=== PATIENT | male | born 1995 | race Caucasian/White ===

== ENCOUNTER 2017-06-17 09:03 | Observation (INO) ==
[2017-06-17] MEDS ORDERED: VANCOMYCIN 1,250 MG in NS 500ml 500 ML IV ONE (09:31)
[2017-06-17] MEDS ORDERED: ONDANSETRON 4 MG/2 ML INJECTION IVP ONE (09:31)
[2017-06-17] MEDS ORDERED: FentaNYL 250 MCG/5 ML INJECTION IVP ONE (09:31)
[2017-06-17] MEDS ORDERED: NS 1,000 ML IV ONE (09:31)
--- OUTSIDE RECORDS SUMMARY | 2017-06-17 09:36 | External Medical Summary | Continuity of Care Document ---
:1995 Author Organization [facility] Allergies Active Description Code Type Severity Reaction Onset Reported/ Identified Relationship Clinical to Patient Status Yes No Known No Drug Unknown N/A 06/18/2016 Allergies Known Aller Aller gy gies Medications There is no data. Problems There is no data. Procedures There is no data.<section xmlns="urn:hl7-org:v3" xmlns:xsi=" http://www.Sensopia.org/2001/XMLSchema-instance"> <templateId root=" [id number]" /> <templateId root=" [id number]" /> <code codeSystemName=" LOINC" codeSystem="[id number]" code="70676-9&quot ; displayName="Results" /> <title>Results</title> &lt ;text> <table> <thead> <tr> <th& gt;Test</th> <th>Result</th> <th>Range </th> </tr> </thead> <tbody> &lt ;tr> <th colspan="10">STREP THROAT SCREEN (GROUP A) - STREP THROAT CULTURE (GROUP A) - 06/18/16 13:25</th> </tr> <tr> <td>Microbiology</td> <td> & lt;/td> <td /> </tr> </tbody> </ table> </text> <entry> <organizer moodCode="EVN&quot ; classCode="BATTERY"> <templateId root=" [id number]" /> <id nullFlavor="NA&quot ; /> <code codeSystem="local" code="STREPA" displayName="STREP THROAT SCREEN (GROUP A) - STREP THROAT CULTURE (GROUP A) " /> <statusCode code="completed" /> < component> <observation moodCode="EVN" classCode=" OBS"> <templateId root="[id number]& quot; /> <id nullFlavor="NA" /> <code codeSystem="local" code="MB" displayName="Microbiology& quot; /> <statusCode code="completed" /> & lt;effectiveTime value="[id number]" /> <value xsi:type=&quot ;ST" value="<pre><b>STREP THROAT SCREEN (GROUP A)</b&gt ; See BelowSTREP THROAT SCREEN (GROUP A)(F) Conor Date/Time: 06/18/2016 13:25 Sarah Date/Time: 06/18/2016 13:40SOURCE: THROATSPEC DESC: GROUP A STREP (Abnormal)POSITIVE (Abnormal)[facility] [id number] [address]</pre>" /> < referenceRange> <observationRange> <text /& gt; </observationRange> </referenceRange> </observation> </component> </organizer> </entry& gt;</section> Encounters ACCT Visit Discharge Status Pt. Type Provider Facility Loc./Unit Complaint No. Date/Time [id number] 06/18/2016 06/18/2016 DIS Emergency Secrist Guy AguirreEDW [id number] 12:40:00 14:10:00 DO [facility]
--- NOTE | 2017-06-17 09:40 | Emergency Department Report ---
Skin/Abscess/FB HPI - General Chief complaint: Skin/Abscess/Foreign Body Stated complaint: swelling jaw area Time Seen by Provider: 06/17/17 09:27 Source: patient, family, RN notes reviewed, old records reviewed Mode of arrival: ambulatory Limitations: no limitations - History of Present Illness HPI narrative: 21yo man presents to the ER this AM for b/l facial swelling. Pt popped a 'pimple ' on his jaw >48hrs ago. Ever since, he has had redness, swelling, and warmth of his jaw. This AM, when he awoke, his face was warm, TTP, and the swelling had spread b/l along his jaw. He now has severe dental pain throughout his jaw. Pt has a remote h/o 'staph infection' of his arm. MD complaint: other (Cellulitis) Onset (ago): day(s) (2+) Location: face Severity: severe Severity scale (1-10): 8 Quality: burning Consistency: constant Relieving factors: cold therapy, medication Exacerbating factors: palpation, movement Treatments prior to arrival: attempted to drain pus at home, Benadryl, NSAID - Related Data Home Medications Medication Instructions Recorded Confirmed No known Home medications [No home 06/17/17 06/17/17 meds] Allergies Allergy/AdvReac Type Severity Reaction Status Date / Time No Known Drug Allergies Allergy Unknown NONE Verified 06/17/17 09:23 Review of Systems All systems: reviewed and negative except as stated ENT: Reports: as per HPI, dental pain. Denies: ear pain, throat pain, hearing loss, epistaxis, congestion, dysphagia Integumentary: Reports: as per HPI, change in pigmentation, erythema, rash, swelling. Denies: alopecia, change in hair, change in nails, changing lesions, lesions, non-healing lesions, photosensitivity, pruritus, wounds, jaundice [facility] Medical History Updates: 'Staph' infection - Social History Smoking status: Never smoker Physical Exam - Limitations Limitations: no limitations - General General appearance: alert, in no apparent distress - Normal Exams: Head:: Normocephalic without trauma Eyes:: Pupils are PERRLA w/ EOMI, No scleral icterus, irritation, or foreign bodies noted Neck:: Full range of motion, without adenopathy Lymphatic:: No lymphadenopathy Musculoskeletal:: No tenderness, or deformity noted, good range of motion Neurological:: Patient is alert, and oriented Psychiatric:: Patient exhibits, appropriate attention - ENT ENT exam: Present: mucous membranes moist, normal external ear exam. Absent: normal exam, normal oropharynx (Swelling of buccal mucosa and gingiva to molars along mandible) - Skin Skin exam: Present: warm, dry, intact, rash, erythema (Swelling, induration, erythema, and TTP along mandible b/l to angle) Course - Consultations Consultation #1: Hospitalist: Will admit pt for further atbx and obs. Time: 11:07 Vital Signs Temperature 99.2 F 06/17/17 09:03 Pulse Rate 96 06/17/17 09:03 Respiratory Rate 18 06/17/17 09:03 Blood Pressure 147/81 H 06/17/17 09:03 Pulse Oximetry 97 06/17/17 09:03 Temperature 99.2 F 06/17/17 09:03 Pulse Rate 96 06/17/17 10:00 Respiratory Rate 18 06/17/17 09:03 Blood Pressure 158/80 H 06/17/17 10:30 Pulse Oximetry 98 06/17/17 10:00 Skin/Abscess/Foreign Body - MDM Narrative Medical decision making narrative: Pt without gross evidence of osteo, Micah's angina, or abscess formation. Discussed with hospitalist, who will admit to continue atbx and for observation. - Differential Diagnosis Likely: abscess of skin or subcutaneous tissue, allergic reaction to drug, cellulitis, eczema, impetigo. Unlikely: viral exanthem, dermatophytosis, urticaria, herpes zoster, insect bites, contact dermatitis - Medical Records Attestation: I reviewed the patient's medical records. - Lab Data Attestation: I reviewed the patient's lab results. Result diagrams: 06/17/17 09:44 06/17/17 09:44 Lab Results 06/17/17 06/17/17 Range/Units 09:44 09:44 WBC 11.7 H (4.5-11.0) T/MM3 RBC 5.38 (4.50-5.90) M/MM3 Hgb 15.7 (13.5-17.5) GM/DL Hct 45.3 (41-53) % MCV 84.2 (80-100) UM3 MCH 29.2 (26-34) UUG MCHC 34.7 (31-37) GM/DL RDW Std Deviation 37.1 (36.9-50.2) FL Plt Count 239 (130-400) T/MM3 MPV 8.7 L (9.4-12.4) UM3 Immature Gran % (Auto) 0.2 (0.0-0.5) % Neut % (Auto) 77.9 H (33-66) % Lymph % (Auto) 14.5 L (23-45) % Parmer % (Auto) 7.2 (0-9.0) % Eos % (Auto) 0.0 (0-4) % Baso % (Auto) 0.2 (0-2) % Neut # (Auto) 9.1 H (1.8-7.7) T/MM3 Lymph # (Auto) 1.7 (1-4.8) T/MM3 Parmer # (Auto) 0.8 (0-0.8) T/MM3 Eos # (Auto) 0.0 (0-0.5) T/MM3 Baso # (Auto) 0.0 (0-0.2) T/MM3 Abs Immat Gran (auto) 0.02 (0.00-0.03) T/MM3 Turbidity < 20 (0-20) Sodium 145 H (134-144) MEQ/L Potassium 4.1 (3.6-5) MEQ/L Chloride 104 (98-107) MEQ/L Carbon Dioxide 29 (22-30) MEQ/L Anion Gap 12 (5-15) MEQ/L BUN 10.0 (9-20) MG/DL Creatinine 0.9 (0.8-1.5) MG/DL GFR Calculation 108 BUN/Creatinine Ratio 11 (6-26) RATIO Glucose 111 H (75-110) MG/DL Calculated Osmolality 279 (261-280) MOSM/KG Calcium 9.7 (8.4-10.2) MG/DL Icterus Index < 2 (0-7) C-Reactive Protein 33.5 H (0-9) MG/L Specimen Hemolysis < 15 (0-25) - Radiology Data Attestation: I reviewed the patient's radiology results. CT Neck: FINDINGS: Nasopharynx: Unremarkable. Oropharynx: Unremarkable. No significant tonsillar enlargement. No peritonsillar abscess. Hypopharynx: Unremarkable. Larynx: Unremarkable. Normal epiglottis. Trachea: Unremarkable. Retropharyngeal space: Unremarkable. Submandibular/parotid glands: Unremarkable. Glands are normal in size. Thyroid: Unremarkable. No enlarged or calcified nodules. Bones/joints: Mild inflammatory changes without abscess are noted in both cheeks at the level of the mandible. There is no evidence of abnormal fluid collection to suggest an abscess. No acute fracture. Soft tissues: Unremarkable. Vasculature: No acute findings. Lymph nodes: There is an enlarged 11 mm right carotid chain lymph node. There is an enlarged 10.5 mm left carotid chain lymph node. Lung apices: Unremarkable as visualized. IMPRESSION: Bilateral suspected cheek cellulitis with slightly enlarged bilateral carotid chain lymph nodes. Disposition Clinical Impression: Cellulitis Qualifiers: Site of cellulitis: face Qualified Code(s): L03.211 - Cellulitis of face Disposition: 02 To [facility] Print Language: Vietnamese Condition: Improved Prescriptions: No Action No known Home medications [No home meds] 0 #0 [facility] Referrals: Tu Casillas MD [Physician] - Time of Disposition: 11:11 - Seen By: physician
[2017-06-17] MEDS ORDERED: CLINDAMYCIN PB 600 MG/50 ML BAG IV SCH (09:45)
[2017-06-17] MEDS ORDERED: FentaNYL 100 MCG/2 ML INJECTION IVP ONE (10:00)
[2017-06-17] MEDS: SALINE FLUSH 10ml SYRINGE IVF PRN ×3 (10:11→11:16)
[2017-06-17] MEDS ORDERED: IOHEXOL 300mg/ml 75ml INJECTION ONE (10:12)
[2017-06-17] MEDS ORDERED: SALINE FLUSH 10ml SYRINGE ONE (10:12)
[2017-06-17] MEDS ORDERED: KETOROLAC 30 MG/ML INJECTION IVP ONE (11:13)
[2017-06-17 11:42] VITALS: BMI 28.0
[2017-06-17] MEDS ORDERED: BISACODYL 10 MG SUPPOSITORY RECTALLY PRN (11:46)
[2017-06-17] MEDS ORDERED: ONDANSETRON 4 MG/2 ML INJECTION IVP PRN (11:46)
[2017-06-17] MEDS ORDERED: FentaNYL 100 MCG/2 ML INJECTION IVP PRN (11:46)
[2017-06-17] MEDS ORDERED: INFLUENZA VAC QIV 2017-18 (Fluarix*)(>=3yo) 0.5ml IM ONE (11:47)
[2017-06-17] MEDS: 1/2 NS 1,000 ML IV SCH ×2 (12:04→21:19)
[2017-06-17] MEDS: CLINDAMYCIN PB 600 MG/50 ML BAG IV SCH ×2 (12:24→17:20)
--- NOTE | 2017-06-17 12:26 | History & Physical Report ---
History of Present Illness Date: 06/17/17 Chief complaint: pain and swelling in chin HPI: Patient is a 21-year-old who came to the ER this morning with complaints of pain and swelling in his chin. He states it started 2 nights ago. He initially had a "pimple" that he "popped" and then he states he started to get swelling. The swelling has gradually worsened and he has developed pain along with it. Has pain with eating. The pain is mostly in the chin but spreads to the jaw bilaterally. States before pain medicine in the ER his pain was 8/10. It is currently 2/10. CT scan performed in the ER showed possibility of cheek cellulitis with slightly enlarged bilateral carotid chain lymph nodes. Patient has not run a fever that he is aware of at home, but was 99.2 in the ER. He's had a little bit of a headache, but reports that is resolved. Otherwise he has not been feeling ill. His white count in the ER was 11.7. Otherwise, labs are unremarkable. Review of Systems All systems PM: 10-point ROS was reviewed, no additional remarkable complaints except (chin pain, feels "warm," headache earlier - resolved now) Past Medical History Patient Stated Medical History Other Infectious Yes: right arm staph infection Medical History Updates: 'Staph' infection in arm 3 years ago - resolved with atbx Surgical History: none Family History: F - DM, obesity M - MS Brother - asthma Family History Updates: updated - Social History Smoking status: Never smoker Substance use type: does not use Alcohol intake frequency: does not drink Housing: house Household members: family Current occupational status: student ([employer]) Social history: No PCP - has been healthy and hasn't needed to see an MD. Would est with Dr. Connelly if needed. Medications Home Medications Medication Instructions Recorded Confirmed Type No known Home medications [No home 06/17/17 06/17/17 History meds] Allergies Allergy/AdvReac Type Severity Reaction Status Date / Time No Known Drug Allergies Allergy Unknown NONE Verified 06/17/17 09:23 Exam Vital Signs: Temperature 99.0 F 06/17/17 11:41 Pulse Rate 88 06/17/17 11:41 Respiratory Rate 20 06/17/17 11:41 Blood Pressure 142/80 H 06/17/17 11:41 Pulse Oximetry 99 06/17/17 11:41 Height/Weight/BMI: Height 1.78 m Weight 88.5 kg Body Mass Index 28.0 - Constitutional Present: no acute distress, well nourished, well developed - Routine HEENT Exam Head: Present: normocephalic, atraumatic Eye: Present: EOMI, PERRL ENT: Present: mucous membranes moist, oropharynx clear Comments: chin swollen, tender and erythematous with palpable fullness approximately 1 x 3 cm on the anterior chin. He has mild tenderness into the mandible bilateral. I appreciate no obvious swelling in the jaw/cheek region, however patient and mom report that patient does appear more swollen along the jaw bilaterally. Patient has a full cisneros, so this slightly limits exam. - Routine Neck Exam Present: supple. Absent: lymphadenopathy (no significant adenopathy is appreciated), thyromegaly - Routine Respiratory Exam Present: CTA bilaterally. Absent: wheezes - Routine Cardiovascular Exam Present: RRR, no murmur - Routine Abdominal Exam Present: soft, normoactive bowel sounds. Absent: tenderness, distended - Routine Extremities Exam Present: no edema, normal capillary refill - Routine Skin Exam Present: dry, warm - Routine Neurological Exam Present: alert, oriented X3, CN II-XII intact - Routine Psychiatric Exam Present: normal affect, cooperative Results - Labs CBC & Chem 7: 06/17/17 09:44 06/17/17 09:44 - Imaging and Cardiology CT neck/face Additional comments: Bilateral suspected cheek cellulitis was slightly enlarged bilateral carotid chain lymph nodes Assessment and Plan Assessment and Plan: Assessment Facial cellulitis, rule out abscess of the chin Mild leukocytosis Plan Admit to observation under the hospitalist service, Dr. Han attending, for IV antibiotics and pain control. Patient was given vancomycin in the ER for antimicrobial coverage and Toradol for pain. Will start Clindamycin IV to cover for MRSA and beta hemolytic streptococci. Ibuprofen 800 mg 3 times a day with meals. Tylenol 650mg interspersed between meals and at bedtime. [place] as needed for pain control beyond the timed ibuprofen and Tylenol. Labs in am to follow counts. CBC, BMP, CRP, SCD's for VTE PPX. Pt wishes to be a full code. Has no PCP, but would be willing to establish with Dr. Connelly should he need OP follow-up. Emely Assessment as above with: Hypernatremia DVT Prophylaxis: SCD's Resuscitation Status: Full Code - Physician Narrative Physician: Eb Han MD Narrative: Date: 06/17/17 Time: 1455 Have independently interviewed and examined pt. Chart reviewed. Case discussed with ED physician and my PA. Care plan developed with my supervision; agree with above. Present to ED secondary to increase pain and swelling to his chin and lower jaw/ neck. Had a pimple on chin that he popped on Wednesday 06/14. Started to have increasing pain and swell to chin and neck. Tried Ibuprofen, which helped pain only slightly. Feels some fever/chills. Harder to eat due to pain from the swelling. No n/v. Breathing stable. Evaluated in ED. With leukocytosis and symptoms, OBS for IV antibiotics initiated. Lungs: clear CV: regular AB: soft nt/nd MSE: awake alert HEENT: swelling and erythema to chin, fullness under jaw Plan: OBS. IV clindamycin for skin coverage. IVF to maintain hydration. Pain control. Monitor lab. Reassess tomorrow-hope for discharge to home if improving. Hospital Course Summary Disclaimer: The visit summary below is not to be considered part of the above Progress Note. Hospital Course: 06/17/17 Admit to observation under the hospitalist service, Dr. Han attending, for IV antibiotics and pain control. Patient was given vancomycin in the ER for antimicrobial coverage and Toradol for pain. Will start Clindamycin IV to cover for MRSA and beta hemolytic streptococci. Ibuprofen 800 mg 3 times a day with meals. Tylenol 650mg interspersed between meals and at bedtime. [place] as needed for pain control beyond the timed ibuprofen and Tylenol. Labs in am to follow counts. CBC, BMP, CRP, SCD's for VTE PPX. Pt wishes to be a full code. Has no PCP, but would be willing to establish with Dr. Connelly should he need OP follow-up.
[2017-06-17] MEDS: ACETAMINOPHEN 325 MG TABLET PO SCH ×3 (14:40→21:18)
[2017-06-17] MEDS ORDERED: INFLUENZA VAC. INJ. ADMIN CHARGE INJ ONE (16:46)
[2017-06-17] MEDS: IBUPROFEN 800 MG TABLET PO SCH (17:20)
[2017-06-17] MEDS: HYDROCODONE/APAP 7.5 MG/325 MG TABLET PO PRN (20:35)
[2017-06-18] MEDS: CLINDAMYCIN PB 600 MG/50 ML BAG IV SCH ×3 (01:25→12:05)
[2017-06-18] MEDS: HYDROCODONE/APAP 7.5 MG/325 MG TABLET PO PRN ×2 (01:31→07:21)
[2017-06-18] MEDS: 1/2 NS 1,000 ML IV SCH ×2 (06:08→12:06)
[2017-06-18 07:33] VITALS: BP 160/87; PULSE 96; RESP 16; TEMP 99.1; O2SAT 95
[2017-06-18] MEDS: IBUPROFEN 800 MG TABLET PO SCH ×2 (08:42→12:05)
[2017-06-18] MEDS: ACETAMINOPHEN 325 MG TABLET PO SCH ×2 (08:42→12:05)
--- NOTE | 2017-06-18 09:12 | CT Scan Report ---
Indication: Spreading SubQ infx PROCEDURE: CT soft tissue neck w con: Encounter: Initial Comparison: None Technique: Axial CT images were performed through the neck with intravenous contrast. Coronal and sagittal two-dimensional reformats. Automated Exposure Control and Iterative Reconstruction dose reducing techniques were utilized. Contrast: Omnipaque 300 75 mL Findings: Soft tissue swelling around the mandible, greater on the left side. No drainable fluid collection or abscess. Reactive submandibular and cervical level two lymphadenopathy. The salivary glands are normal and symmetric. Skull base is unremarkable. No mucosal based mass lesions appreciated. Lung apices are grossly clear. No subcutaneous gas appreciated. Impression: Evidence of a perimandibular area cellulitis without drainable abscess. There is a preliminary report by virtual radiologic. .
--- NOTE | 2017-06-18 15:57 | Progress Note ---
- Date 06/18/17 Subjective: Facial cellulitis, rule out abscess of the chin, Mild leukocytosis Pain decreased but not resolved. [place] and ibuprofen helping discomfort. Able to chew without significant pain. Slight nausea. Breathing well. Low grade temp. Objective Vital signs: Temperature 99.1 F 06/18/17 07:33 Pulse Rate 96 06/18/17 07:33 Respiratory Rate 16 06/18/17 07:33 Blood Pressure 160/87 H 06/18/17 07:33 Pulse Oximetry 95 06/18/17 07:33 Height/Weight/BMI: Height 1.78 m Weight 88.5 kg Body Mass Index 28.0 - Constitutional Present: well nourished, well developed, average body habitus, cooperative - Routine HEENT Exam Head: Present: normocephalic, atraumatic Eye: Present: EOMI, PERRL ENT: Present: mucous membranes moist - Routine Respiratory Exam Present: CTA bilaterally. Absent: respiratory distress - Routine Cardiovascular Exam Present: RRR, no murmur - Routine Abdominal Exam Present: soft, non distended, non tender - Routine Extremities Exam Present: no edema. Absent: cyanosis, clubbing - Routine Musculoskeletal Exam Musculoskeletal: Present: no clubbing or cyanosis, normal strength - Routine Skin Exam Present: intact, dry, warm, normal turgor Comments: Area of fullness left of lateral chin. Feels firm, no fluctuance. Erythema. Mild tenderness. No drainage. - Routine Neurological Exam Present: alert, oriented X3, CN II-XII intact, moving all extremities, vision grossly intact, hearing grossly intact, normal speech. Absent: motor deficit, altered mental status - Routine Psychiatric Exam Present: normal affect, normal thought process, cooperative Results - Labs CBC & Chem 7: 06/18/17 04:31 06/18/17 04:31 Assessment and Plan Assessment and Plan: Assessment Facial cellulitis, rule out abscess of the chin Mild leukocytosis Hypernatremia Elevated blood pressure Plan Medically stable-can discharge to home. Will continue with clindamycin 300mg TID for 10 days. Discussed potential side effects of clindamycin. May use warm compress to chin four times a day. Monitor for fluctuance. Potentially could develop abscess formation that would require surgical incision and drainage. If need for incision and drainage, would need to contact care provider (Dr Khan). Potentially need to see surgeon. Ibuprofen 200mg 4 table TID with food/snack to help pain. Use routinely until pain/swelling resolves. May use [place] 7.5/325 1 tablet every 4 hours as needed for pain. Maximum of 3250mg of acetaminophen (10 pills) in any 24 hour period of time. Advised potential side effects of [place] - constipation, nausea, mental impairment, dependency/abuse potential. Ondansetron (Zofran) 4 mg every 6 hours as needed for nausea. May follow with Dr Khan as needed for the facial cellulitis. See orders for details. Time spent with patient care and discharge greater than 30 minutes. - Physician Narrative Narrative: Date: 06/18/17 Time: 2344 Hospital Course Summary Disclaimer: The visit summary below is not to be considered part of the above Progress Note. Hospital Course: 06/17/17 Admit to observation under the hospitalist service, Dr. Han attending, for IV antibiotics and pain control. Patient was given vancomycin in the ER for antimicrobial coverage and Toradol for pain. Will start Clindamycin IV to cover for MRSA and beta hemolytic streptococci. Ibuprofen 800 mg 3 times a day with meals. Tylenol 650mg interspersed between meals and at bedtime. [place] as needed for pain control beyond the timed ibuprofen and Tylenol. Labs in am to follow counts. CBC, BMP, CRP, SCD's for VTE PPX. Pt wishes to be a full code. Has no PCP, but would be willing to establish with Dr. Khan should he need OP follow-up. 06/18/17 Medically stable-can discharge to home. Will continue with clindamycin 300mg TID for 10 days. Discussed potential side effects of clindamycin. May use warm compress to chin four times a day. Monitor for fluctuance. Potentially could develop abscess formation that would require surgical incision and drainage. If need for incision and drainage, would need to contact care provider (Dr Khan). Potentially need to see surgeon. Ibuprofen 200mg 4 table TID with food/snack to help pain. Use routinely until pain/swelling resolves. May use [place] 7.5/325 1 tablet every 4 hours as needed for pain. Maximum of 3250mg of acetaminophen (10 pills) in any 24 hour period of time. Advised potential side effects of [place] - constipation, nausea, mental impairment, dependency/abuse potential. Ondansetron (Zofran) 4 mg every 6 hours as needed for nausea. May follow with Dr Khan as needed for the facial cellulitis. See orders for details.
--- NOTE | 2017-06-18 16:23 | Discharge Summary ---
Discharge Information Date of admission: 06/17/17 11:10 Anticipated date of discharge: 06/18/17 Attending Physician: Eb Han MD Consults: None - Discharge Diagnosis (1) Cellulitis of submandibular region Status: Acute Discharge diagnosis Facial cellulitis, rule out abscess of the chin No blake yulisa abscess found Associated conditions and complications Mild leukocytosis Hypernatremia (POA) - resolved Elevated blood pressure - Laboratory Labs: Admit Lab 06/17/17 09:44 WBC 11.7 H Hgb 15.7 Hct 45.3 MCV 84.2 Plt Count 239 Neut % (Auto) 77.9 H Lymph % (Auto) 14.5 L [place] % (Auto) 7.2 Admit Lab 06/17/17 09:44 Sodium 145 H Potassium 4.1 Chloride 104 Carbon Dioxide 29 Anion Gap 12 BUN 10.0 Creatinine 0.9 GFR Calculation 108 BUN/Creatinine Ratio 11 Glucose 111 H Calculated Osmolality 279 Calcium 9.7 Icterus Index < 2 C-Reactive Protein 33.5 H 06/18/17 04:31 06/18/17 04:31 - Radiology Radiology: Date of Exam: 06/17/17 PROCEDURE: CT soft tissue neck w con Findings: Soft tissue swelling around the mandible, greater on the left side. No drainable fluid collection or abscess. Reactive submandibular and cervical level two lymphadenopathy. The salivary glands are normal and symmetric. Skull base is unremarkable. No mucosal based mass lesions appreciated. Lung apices are grossly clear. No subcutaneous gas appreciated. Impression: Evidence of a perimandibular area cellulitis without drainable abscess. History of Present Illness HPI: Patient is a 21-year-old who came to the ER this morning with complaints of pain and swelling in his chin. He states it started 2 nights ago. He initially had a "pimple" that he "popped" and then he states he started to get swelling. The swelling has gradually worsened and he has developed pain along with it. Has pain with eating. The pain is mostly in the chin but spreads to the jaw bilaterally. States before pain medicine in the ER his pain was 8/10. It is currently 2/10. CT scan performed in the ER showed possibility of cheek cellulitis with slightly enlarged bilateral carotid chain lymph nodes. Patient has not run a fever that he is aware of at home, but was 99.2 in the ER. He's had a little bit of a headache, but reports that is resolved. Otherwise he has not been feeling ill. His white count in the ER was 11.7. Otherwise, labs are unremarkable. For complete details of the H&P refer to that document. Objective Vital signs: Temperature 99.1 F 06/18/17 07:33 Pulse Rate 96 06/18/17 07:33 Respiratory Rate 16 06/18/17 07:33 Blood Pressure 160/87 H 06/18/17 07:33 Pulse Oximetry 95 06/18/17 07:33 Height/Weight/BMI: Height 1.78 m Weight 88.5 kg Body Mass Index 28.0 Hospital Course This is a general summary of the patient's hospital course. For more details refer to the complete medical record. Hospital course: 06/17/17 Admit to observation under the hospitalist service, Dr. Han attending, for IV antibiotics and pain control. Patient was given vancomycin in the ER for antimicrobial coverage and Toradol for pain. Will start Clindamycin IV to cover for MRSA and beta hemolytic streptococci. Ibuprofen 800 mg 3 times a day with meals. Tylenol 650mg interspersed between meals and at bedtime. Treadwell as needed for pain control beyond the timed ibuprofen and Tylenol. Labs in am to follow counts. CBC, BMP, CRP, SCD's for VTE PPX. Pt wishes to be a full code. Has no PCP, but would be willing to establish with Dr. Khan should he need OP follow-up. 06/18/17 Medically stable-can discharge to home. Will continue with clindamycin 300mg TID for 10 days. Discussed potential side effects of clindamycin. May use warm compress to chin four times a day. Monitor for fluctuance. Potentially could develop abscess formation that would require surgical incision and drainage. If need for incision and drainage, would need to contact care provider (Dr Khan). Potentially need to see surgeon. Ibuprofen 200mg 4 table TID with food/snack to help pain. Use routinely until pain/swelling resolves. May use Treadwell 7.5/325 1 tablet every 4 hours as needed for pain. Maximum of 3250mg of acetaminophen (10 pills) in any 24 hour period of time. Advised potential side effects of Treadwell - constipation, nausea, mental impairment, dependency/abuse potential. Ondansetron (Zofran) 4 mg every 6 hours as needed for nausea. May follow with Dr Khan as needed for the facial cellulitis. See orders for details. Time spent with patient: discharge greater than 30 minutes Resuscitation Status: Full Code Discharge Plan - Discharge Disposition Discharge Date: 06/18/17 Disposition: 01 Discharged Home, Self-Care *Condition: Improved Reason For Visit (Visit label in EMR): cellulitis of face - Discharge Medications *Discharge Medications: New Hydrocodone/APAP 7.5/325 [Treadwell 7.5/325] 1 tab PO Q4H PRN #30 tab PRN Reason: Pain Ibuprofen 800 mg PO TIDWM #1 bottle Ondansetron HCl 4 mg PO Q6HR PRN #20 tab PRN Reason: Nausea Milk of Magnesia [Mom] 30 ml PO DAILY PRN udc PRN Reason: Constipation Bisacodyl Supp [Dulcolax] 10 mg RECTALLY DAILY PRN suppositor PRN Reason: Constipation Clindamycin [Cleocin] 300 mg PO TID #30 cap - Discharge Packet/Instructions *Diet: Regular as tolerated *Activity: As tolerated *Pain Management/Treatment: Ibuprofen 200mg 4 table TID with food/snack to help pain. Use routinely until pain/swelling resolves. May use Treadwell 7.5/325 1 tablet every 4 hours as needed for pain. Maximum of 3250mg of acetaminophen ( 10 pills) in any 24 hour period of time. *Wound Care: May use warm compress to chin four times a day. Monitor for fluctuance. Potentially could develop abscess formation that would require surgical incision and drainage. Additional Instructions: May use warm compress to chin four times a day. Monitor for fluctuance. Potentially could develop abscess formation that would require surgical incision and drainage. If need for incision and drainage, would need to contact care provider (Dr Khan). Potentially need to see surgeon. Ibuprofen 200mg 4 table TID with food/snack to help pain. Use routinely until pain/swelling resolves. May use Treadwell 7.5/325 1 tablet every 4 hours as needed for pain. Maximum of 3250mg of acetaminophen (10 pills) in any 24 hour period of time. Advised potential side effects of Treadwell - constipation, nausea, mental impairment, dependency/abuse potential. May use over the counter MOM or Dulcolax as needed for constipation. *Expected Signs/Symptoms: Decreasing pain, swelling, redness to chin. *Notify Physician if: Temp >100.4. Fluctuance of wound. *During Business Hours Contact: Dr Khan *After Business Hours Contact: Call [facility] [place] have [place] care provider contacted. *Pending Lab/Results: No Pending Lab - Referrals/Follow Up *Referrals/Follow Up: Ashleigh Khan DO [Physician] - (As needed. ) - Patient Handouts Patient Handouts: Cellulitis (GEN) - Dismissal Complete Discharge Instructions are:: Complete Physician Narrative - Narrative Physician: Eb Han MD Attestation Narrative: Date: 06/18/17 Time: 1615 I have independently interviewed and examined patient prior to discharge. See my progress note from today for details. Medically stable for discharge to home.
== END 2017-06-18 16:41 | disposition home or self-care (01) ==
LOC: MED 09:03 → ED 09:03 → MED 11:36
PROVIDERS: ADMIT Hospitalist; ATTEND Hospitalist